=== PATIENT | female | born 1955 | race Caucasian/White ===

== ENCOUNTER 2018-01-25 02:29 | Emergency (ER) | payer BC ==
[~2018-01-25] VITALS: Ht 157.5 cm; Wt 67.6 kg
[2018-01-25] MEDS ORDERED: LIDO:MAALOX 1:1 20 ML SINGLE DOSE. SWSW ONE (02:45)
[2018-01-25] MEDS ORDERED: ASPIRIN CHEWABLE 81 MG TABLET. PO ONE (02:45)
--- NOTE | 2018-01-25 02:46 | PHYS DOC ---
Past Medical History Past Medical History: Anxiety, CAD Past Surgical History: Angioplasty (without stent) Smoking: Cigarettes (The patient is a nonsmoker.) Adult General Chief Complaint Chief Complaint: CHEST PAIN HPI HPI Patient is a 63-year-old female who presents to the emergency department for evaluation. She states that at about 10:00 this evening, she began experiencing epigastric discomfort, with radiation towards the left side of her chest. She states that movement and laying flat seems to worsen her symptoms. She has not really had any definite exertional chest discomfort. She appears somewhat short of breath, and is hyperventilating, and states she does have a past history of anxiety. She states that she has had an angioplasty about 11 years ago, and states that the chest discomfort that she is experiencing now feels exactly the same as her prior episode. She has not had any nausea, or vomiting. There are no alleviating, or exacerbating factors to her symptoms otherwise. Review of Systems Review of Systems Constitutional: Denies fever or chills [] Eyes: Denies change in visual acuity, redness, or eye pain [] HENT: Denies nasal congestion or sore throat [] Respiratory: Denies cough or shortness of breath [] Cardiovascular: No additional information not addressed in HPI [] GI: Denies nausea, vomiting, bloody stools or diarrhea [] : Denies dysuria or hematuria [] Musculoskeletal: Denies back pain or joint pain [] Integument: Denies rash or skin lesions [] Neurologic: Denies headache, focal weakness or sensory changes [] Endocrine: Denies polyuria or polydipsia [] All other systems were reviewed and found to be within normal limits, except as documented in this note. Current Medications Current Medications Current Medications Medications (Trade) Dose Ordered Sig/Steph Start Time Stop Time Status Last Admin Dose Admin Aspirin (Children'S Aspirin) 324 mg 1X ONCE 01/25/18 02:45 01/25/18 03:22 DC 01/25/18 02:45 324 MG Lorazepam (Ativan) 1 mg PRN Q4HRS PRN 01/25/18 02:45 Multi-Ingredient Mouthwash/Gargle (Gi Cocktail) 20 ml 1X ONCE 01/25/18 02:45 01/25/18 03:22 DC 01/25/18 02:45 20 ML Allergies Allergies Allergies Coded Allergies Type Severity Reaction Last Updated Verified No Known Drug Allergies 01/25/18 No Physical Exam Physical Exam PHYSICAL EXAM: CONSTITUTIONAL: Well developed, well nourished HEAD: normocephalic, atraumatic EENT: PERRL, EOMI. Conjunctivae normal color, sclerae non-icteric; moist mucous membranes. NECK: Supple, non-tender; no meningismus. LUNGS: Lungs CTA, breathing even and unlabored. Normal air movement. HEART: Regular rate and rhythm, no murmur CHEST: No deformity; non-tender ABDOMEN: The abdomen is soft, and non-tender, no masses or bruits. The right upper quadrant is nontender. The epigastric area is relatively nontender. EXTREM: Normal ROM; no deformity, no calf tenderness. Normal pulses palpable in all extremities. There is no pedal edema. SKIN: No rash; no diaphoresis NEURO: Alert; normal speech and cognition; CN's grossly intact; strength grossly intact without focal deficit. BACK: No CVA TTP. PSYCHIATRIC: The patient exhibits a moderately anxious affect. Current Patient Data Vital Signs Vital Signs Date Time Temp Pulse Resp B/P (MAP) Pulse Ox O2 Delivery O2 Flow Rate FiO2 01/25/18 02:43 97.6 78 18 131/58 (82) 100 Room Air 97.6 Lab Values Laboratory Tests Test 01/25/18 02:50 White Blood Count 9.6 x10^3/uL (4.0-11.0) Red Blood Count 4.29 x10^6/uL (3.50-5.40) Hemoglobin 12.8 g/dL (12.0-15.5) Hematocrit 37.3 % (36.0-47.0) Mean Corpuscular Volume 87 fL (79-100) Mean Corpuscular Hemoglobin 30 pg (25-35) Mean Corpuscular Hemoglobin Concent 34 g/dL (31-37) Red Cell Distribution Width 14.0 % (11.5-14.5) Platelet Count 222 x10^3/uL (140-400) Neutrophils (%) (Auto) 68 % (31-73) Lymphocytes (%) (Auto) 24 % (24-48) Monocytes (%) (Auto) 6 % (0-9) Eosinophils (%) (Auto) 2 % (0-3) Basophils (%) (Auto) 1 % (0-3) Neutrophils # (Auto) 6.5 x10^3uL (1.8-7.7) Lymphocytes # (Auto) 2.3 x10^3/uL (1.0-4.8) Monocytes # (Auto) 0.6 x10^3/uL (0.0-1.1) Eosinophils # (Auto) 0.2 x10^3/uL (0.0-0.7) Basophils # (Auto) 0.1 x10^3/uL (0.0-0.2) Prothrombin Time 13.4 SEC (11.7-14.0) Prothrombin Time INR 1.1 (0.8-1.1) Sodium Level 138 mmol/L (136-145) Potassium Level 3.6 mmol/L (3.5-5.1) Chloride Level 105 mmol/L (98-107) Carbon Dioxide Level 27 mmol/L (21-32) Anion Gap 6 (6-14) Blood Urea Nitrogen 15 mg/dL (7-20) Creatinine 1.0 mg/dL (0.6-1.0) Estimated GFR (Cockcroft-Gault) 56.4 BUN/Creatinine Ratio 15 (6-20) Glucose Level 146 mg/dL (70-99) H Calcium Level 9.3 mg/dL (8.5-10.1) Magnesium Level 2.0 mg/dL (1.8-2.4) Total Bilirubin 0.3 mg/dL (0.2-1.0) Aspartate Amino Transferase (AST) 27 U/L (15-37) Alanine Aminotransferase (ALT) 28 U/L (14-59) Alkaline Phosphatase 82 U/L (46-116) Creatine Kinase 71 U/L (26-192) Creatine Kinase MB (Mass) 0.7 ng/mL (0.0-3.6) Creatine Kinase MB Relative Index % (0-4) Troponin I Quantitative < 0.017 ng/mL (0.000-0.055) NV-Omw-T-Type Natriuretic Peptide 124 pg/mL (0-124) Total Protein 6.9 g/dL (6.4-8.2) Albumin 3.5 g/dL (3.4-5.0) Albumin/Globulin Ratio 1.0 (1.0-1.7) Lipase 230 U/L (73-393) Laboratory Tests 01/25/18 02:50 Laboratory Tests 01/25/18 02:50 EKG EKG [Normal sinus rhythm with a normal rate, normal axis, normal intervals, there are no acute ischemic ST/T changes.] Repeat EKG, done at 3:00 AM, shows no acute changes.Normal sinus rhythm with a normal rate, normal axis, normal intervals, there are no acute ischemic ST/T changes. Radiology/Procedures Radiology/Procedures ER physician preliminary chest x-ray interpretation: Right midlung calcified nodule, possibly granuloma. No other acute disease noted.[] PROCEDURE: PORTABLE CHEST 1V PORTABLE CHEST 1V Clinical Indication: MID STERNAL CHEST PAIN Comparison: None. Findings: The cardiomediastinal silhouette is normal. Moderate size calcified granuloma right midlung. Lungs are clear. There is no pneumothorax. No pleural effusion is appreciated. No acute bone abnormality. IMPRESSION: No acute cardiopulmonary process. Course & Med Decision Making Course & Med Decision Making Pertinent Labs and Imaging studies reviewed. (See chart for details) [3:55 AM:The patient's condition remains stable. Her symptoms have improved.I had an extensive discussion with the patient about the limitations of ER cardiac evaluation in definitively ruling out acute coronary syndrome. We discussed limitation of the ER evaluation and a singe ED troponin in r/o AMI, and the risks involved in missed diagnosis of acute coronary syndrome including or permanent debility. I recommended overnight observation for further formal cardiac evaluation to rule out acute coronary syndrome. After expressing understanding of the limitations of ER cardiac evaluation, as well as the risks of missed diagnosis, the patient declined further cardiac evaluation at this time. The patient was mentally competent, and given opportunity to ask questions about the diagnosis and recommended plan of care. I stressed the importance of outpatient follow-up, and returning to the emergency department for new or worsening symptoms, or if the patient is agreeable to undergo further cardiac evaluation. Dragon Disclaimer Dragon Disclaimer This electronic medical record was generated, in whole or in part, using a voice recognition dictation system. Departure Departure Impression: Primary Impression: Chest pain Additional Impression: History of coronary artery disease Disposition: AGAINST MEDICAL ADVICE Condition: STABLE Referrals: ABHILASH PHILLIP MD Patient Instructions: Chest Pain (Nonspecific) Additional Instructions: Begin taking 81 milligrams of aspirin daily. Problem Qualifiers EDVIN MENDOZA MD Jan 25, 2018 02:46
[2018-01-25 03:05] LABS: BASO # 0.1 x10^3/uL (0.0-0.2); BASO % 1 % (0-3); EOS # 0.2 x10^3/uL (0.0-0.7); EOS % 2 % (0-3); HEMATOCRIT 37.3 % (36.0-47.0); HEMOGLOBIN 12.8 g/dL (12.0-15.5); LYMPH # 2.3 x10^3/uL (1.0-4.8); LYMPH % 24 % (24-48); MEAN CORPUSCULAR HEMOGLOBIN 30 pg (25-35); MEAN CORPUSCULAR HGB CONC 34 g/dL (31-37); MEAN CORPUSCULAR VOLUME 87 fL (79-100); MONO # 0.6 x10^3/uL (0.0-1.1); MONO % 6 % (0-9); NEUT # 6.5 x10^3uL (1.8-7.7); NEUT % 68 % (31-73); PLATELET COUNT 222 x10^3/uL (140-400); RED BLOOD COUNT 4.29 x10^6/uL (3.50-5.40); WHITE BLOOD COUNT 9.6 x10^3/uL (4.0-11.0)
[2018-01-25 03:19] LABS: CALCIUM 9.3 mg/dL (8.5-10.1); GFR 56.4; POTASSIUM 3.6 mmol/L (3.5-5.1); PROTHROMBIN TIME PATIENT 13.4 SEC (11.7-14.0)
[2018-01-25 03:25] LABS: ALBUMIN 3.5 g/dL (3.4-5.0); TOTAL BILIRUBIN 0.3 mg/dL (0.2-1.0); TOTAL PROTEIN 6.9 g/dL (6.4-8.2)
--- NOTE | 2018-01-25 03:33 | RAD ---
PORTABLE CHEST 1V Clinical Indication: MID STERNAL CHEST PAIN Comparison: None. Findings: The cardiomediastinal silhouette is normal. Moderate size calcified granuloma right midlung. Lungs are clear. There is no pneumothorax. No pleural effusion is appreciated. No acute bone abnormality. IMPRESSION: No acute cardiopulmonary process. Electronically signed by: Jordan Harrington MD (01/25/2018 3:30 AM) [id number]
[2018-01-25 03:34] LABS: CREATINE KINASE 71 U/L (26-192)
[2018-01-25 04:12] VITALS: BP 122/61
--- NOTE | 2018-01-25 06:17 | EKG ---
[facility] [address] [place] [address] Test Date: 2018-01-25 Test Time: 02:59:57 Pat Name: ARIES COLON Department: Room: Gender: F [employer] Relationship Manager: CASSIUS : 1955 Requested By: EDVIN MENDOZA Order Number: [id number] Reading MD: Cody Cortés Measurements Intervals [place] Rate: 69 P: 56 DE: 184 QRS: 52 QRSD: 76 T: 48 QT: 384 QTc: 412 Interpretive Statements SINUS RHYTHM NORMAL ECG No previous ECG available for comparison Electronically Signed On 01-26-2018 13:12:06 CDT by Cody Cortés
== END 2018-01-25 04:15 | disposition left against medical advice (07) ==
LOC: ER 02:29 → 6 SOUTH 03:50 → UNDOADMIN 03:50 → ER 04:15
DX: R07.89 Other chest pain (principal); I25.10 Atherosclerotic heart disease of native coronary artery without angina pectoris; F17.210 Nicotine dependence, cigarettes, uncomplicated; Z79.82 Long term (current) use of aspirin
CPT/HCPCS: 36415; 71045; 80053; 82553; 83690; 83735; 83880; 84484; 85025; 85610; 93005; 99285